=== PATIENT | female | born 1960 | race Asian ===

== ENCOUNTER 2018-04-02 12:33 | Emergency (ER) | payer MEDICAID ==
[~2018-04-02] VITALS: Ht 149.9 cm; Wt 49.9 kg
[2018-04-02 13:20] LABS: microscopic required? YES; urine erythrocyte TRACE (NEGATIVE)
[2018-04-02 13:42] LABS: BASOPHIL % 0.2 % (0-2); PLATELET COUNT 208 x10^3mcL (130-400)
[2018-04-02 13:50] LABS: RED CELL DISTRIBUTION WIDTH 18.7 % (11.5-14.5)
[2018-04-02 13:57] LABS: CALCIUM 8.4 mg/dL (8.5-10.1); CARBON DIOXIDE 27.7 mmol/L (21-32); CHLORIDE SERUM 107 mmol/L (98-107); CREATININE SERUM 0.8 mg/dL (0.6-1.0); GFR1 > 60 mL/min; GLUCOSE SERUM 100 mg/dL (74-106); POTASSIUM SERUM 4.6 mmol/L (3.5-5.1); SODIUM SERUM 142 mmol/L (136-145)
[2018-04-02 14:12] LABS: ALKALINE PHOSPHATASE 40 U/L (46-116); ALT/SGPT 34 U/L (14-59); AMYLASE 107 U/L (25-115); AST/SGOT 27 U/L (15-37); BILIRUBIN TOTAL 0.51 mg/dL (0.20-1.00); CHOLESTEROL 150 mg/dL (<200); LIPASE 171 IU/L (73-393); TOTAL PROTEIN, SERUM 6.5 g/dL (6.4-8.2)
[2018-04-02 14:13] LABS: ALBUMIN 3.2 g/dL (3.4-5.0); HDL CHOLESTEROL 80 mg/dL (40-60)
[2018-04-02 16:17] VITALS: BP 118/75
== END 2018-04-02 16:17 | disposition home or self-care (01) ==
LOC: ED 12:33
PROVIDERS: Emergency Medicine
DX: R60.9 Edema, unspecified (principal); E46 Unspecified protein-calorie malnutrition; D64.9 Anemia, unspecified; J45.909 Unspecified asthma, uncomplicated
CPT/HCPCS: 36415; 83880; Q0092; Q9967